=== PATIENT | female | born 1955 ===

== ENCOUNTER 2018-02-28 13:03 | Emergency (ER) | payer SELFPAY ==
[2018-02-28 13:06] VITALS: BP 107/73; PULSE 92; RESP 20; TEMP 98; O2SAT 98
[2018-02-28 13:08] VITALS: BMI 20.7
[2018-02-28] MEDS ORDERED: Bacitracin 500 Units/gm Oint Foilpak UD TOP STA (13:16)
[2018-02-28] MEDS ORDERED: Naproxen 550 mg Tab PO STA (13:16)
[2018-02-28] MEDS ORDERED: Tetanus/Diphtheria Toxoids 0.5 ml Syringe IM ONE ×2 (13:16→13:27)
[2018-02-28] MEDS ORDERED: Naproxen 550 mg Tab PO ONE (13:26)
[2018-02-28] MEDS ORDERED: Bacitracin 500 Units/gm Oint Foilpak UD ONE (13:27)
--- NOTE | 2018-02-28 13:33 | C.PDOC ---
History Of Present Illness Patient BIBA for evaluation of left knee and ankle pain after mechanical fall. She states she tripped, falling onto her left knee and twisting her left ankle. She denies head injurym, LOC, neck pain, sensory changes. Patient unsure of tetanus vaccination status. 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) Location Of Injury: Left: Ankle, Knee Severity: Moderate Past Medical History Reviewed: Historical Data, Nursing Documentation, Vital Signs Vital Signs: Last Vital Signs Temp 98.0 F 02/28/18 13:05 Pulse 92 H 02/28/18 13:05 Resp 20 02/28/18 13:05 BP 107/73 02/28/18 13:05 Pulse Ox 98 02/28/18 13:42 - Medical History PMH: Asthma Family History: States: No Known Family Hx - Social History Hx Alcohol Use: No Hx Substance Use: No Review Of Systems Constitutional: Negative for: Fever, Chills Musculoskeletal: Positive for: Other (left knee and left ankle pain ) Skin: Positive for: Other (left knee skin avulsion ). Negative for: Rash Neurological: Negative for: Numbness, Headache, Dizziness Physical Exam - Physical Exam Appears: Well, Non-toxic, In Acute Distress (in mild pain ) Skin: Normal Color, Warm, Dry, Other (left knee - overlying patella, approx 1cm skin avulsion ) Head: Atraumatic, Normacephalic Eye(s): bilateral: Normal Inspection Neck: Normal, No Midline Cervical Tenderness, No Paracervical Tenderness, No Step Off Deformity, Supple Cardiovascular: Rhythm Regular Respiratory: Normal Breath Sounds, No Rales, No Rhonchi, No Wheezing Extremity: Normal ROM (B/L knees and ankles), Tenderness (mild TTP at left anterior knee and left lateral malleolus, no swelling or deformity), No Calf Tenderness, Capillary Refill (< 2 sec all digits ), No Swelling Extremity: Bilateral: Normal ROM Pulses: Left Dorsalis Pedis: Normal, Right Dorsalis Pedis: Normal Neurological/Psych: Oriented x3, Normal Sensation ED Course And Treatment O2 Sat by Pulse Oximetry: 98 (RA) Pulse Ox Interpretation: Normal - Other Rad left ankle Xray X-Ray: Interpreted by Me, Viewed By Me (no fracture/dislocation) left knee Xray X-Ray: Interpreted by Me, Viewed By Me (no fractures/dislocations) Progress Note: Xrays of left ankle and left knee ordered and reviewed. Patient given PO Naprosyn and Tetanus vaccination IM. Nael wraps applied to left knee and left ankle by commercial pest control technician. Reevaluation Time: 13:45 Reassessment Condition: Improved (Patient is resting comfortably, pain has improved. She is able to ambulate normally in ED. Rxs for Naprosyn and Bacitracin given, and patient instructed to follow up with orthopedics within 1 week. She understands she should return to ED if symptoms worsen.) Disposition Counseled Patient/Family Regarding: Diagnosis, Need For Followup, Rx Given - Disposition Referrals: Donnie Dao MD [Staff Provider] - [facility] [place] [Outside] Disposition: HOME/ ROUTINE Disposition Time: 13:45 Condition: STABLE Additional Instructions: FOLLOW UP WITH ORTHOPEDICS WITHIN 1 WEEK USE MEDICATIONS DIRECTED RETURN TO EMERGENCY ROOM IF SYMPTOMS WORSEN SEGUIMIENTO CON ORTOPEDIA DENTRO DE 1 SEMANA USE MEDICAMENTOS SEGN LO INDICADO REGRESE AL LENORE DE EMERGENCIA SI LOS SNTOMAS EMPEORAN Prescriptions: Bacitracin OINT 1 applic TOP BID #1 tube Naproxen 375 mg PO BID PRN #20 tablet PRN Reason: pain Instructions: Ankle Sprain (DC), Knee Sprain (DC) Forms: [employer] (Norwegian) Print Language: KINYARWANDA - POA Present On Arrival: Falls Or Trauma - Clinical Impression Clinical Impression: Left knee sprain, Left ankle sprain, Skin avulsion
--- NOTE | 2018-02-28 14:07 | RAD ---
Date of service: 02/28/2018 PROCEDURE: Left Knee Radiographs. HISTORY: Pain. COMPARISON: None. FINDINGS: BONES: No evidence of acute displaced fracture nor dislocation. There is a small linear calcification within the soft tissues adjacent to the medial femoral condyles probably representing Rio-Stieda or versus less likely osteophyte. JOINTS: Normal. No osteoarthritis. JOINT EFFUSION: Suspect trace joint effusion. OTHER FINDINGS: None. IMPRESSION: No acute fractures. Suspect trace joint effusion
--- NOTE | 2018-02-28 14:34 | RAD ---
Date of service: 02/28/2018 PROCEDURE: Left Ankle Radiographs. HISTORY: left ankle pain after fall COMPARISON: None FINDINGS: BONES: Normal. No fracture. JOINTS: Normal. No osteoarthritis. Ankle mortise maintained. Talar dome intact SOFT TISSUES: Normal. OTHER FINDINGS: None. IMPRESSION: No evidence of acute displaced fracture nor dislocation
== END 2018-02-28 14:07 | disposition home or self-care (01) ==
LOC: C.ER 13:03
DX: S81.002A Unspecified open wound, left knee, initial encounter (principal); S83.92XA Sprain of unspecified site of left knee, initial encounter; S93.402A Sprain of unspecified ligament of left ankle, initial encounter; W01.0XXA Fall on same level from slipping, tripping and stumbling without subsequent striking against object, initial encounter